=== PATIENT | female | born 1965 | race Caucasian/White ===

== ENCOUNTER → 2025-03-17 08:00 | Outpatient (REF) | payer OTHER, SELFPAY ==
--- NOTE | 2025-03-17 13:13 | PTCARENOTE ---
Patients 03/17 ECG abnormal- reviewed by Dr. Garcia - no additional interventions required
[2025-03-17 14:13] VITALS: BMI 47.5
[2025-03-17 14:19] LABS: Hematocrit 45.7 % (37.0-47.0); Hemoglobin 15.3 g/dL (12.0-16.0); Mean Corp Hgb Conc. 33.5 g/dL (33.0-37.0); Mean Corpuscular Volume 84.5 fL (81.0-99.0); Red Cell Dist. Width 14.1 % (11.5-14.5)
[2025-03-17 14:20] LABS: Nucleated Red Blood Cells % 0 %
[2025-03-17 14:46] LABS: ALT (SGPT) 175 U/L (0-35); AST (SGOT) 67 U/L (14-36); Albumin 4.3 g/dl (3.5-5.0); Alkaline Phosphatase 51 U/L (38-126); Blood Urea Nitrogen 17 mg/dl (7-17); Calcium 9.2 mg/dl (8.4-10.2); Carbon Dioxide 25 mmol/L (22-30); Chloride 102 mmol/L (98-107); Estimated Creatinine Clearance 78 ml/min; Glucose 80 mg/dl (70-99); Potassium 3.9 mmol/L (3.5-5.1); Sodium 137 mmol/L (135-145); Total Protein 7.3 g/dl (6.3-8.2); eGFR > 60.00
--- NOTE | 2025-03-19 14:52 | PTCARENOTE ---
Patients ALT-175; Thai @ Dr. Merino office notified
--- NOTE | 2025-03-19 17:12 | PTCARENOTE ---
Abnormal ALT:[address] Ambriz, no further instructions at this time.
== END ==
LOC: RCS 08:00
PROVIDERS: ATTENDING PHYSICIAN Obstetrics & Gynecology Gynecology; FAMILY PHYSICIAN Internal Medicine
DX: N95.0 Postmenopausal bleeding (principal); R93.89 Abnormal findings on diagnostic imaging of other specified body structures; N85.00 Endometrial hyperplasia, unspecified
CPT/HCPCS: 36415; 80053; 85025; 93005